=== PATIENT | male | born 1945 | race Caucasian/White ===

== ENCOUNTER 2017-08-26 22:27 | Inpatient (IN) | payer OTHER ==
[~2017-08-26] VITALS: Ht 190.5 cm; Wt 127.0 kg
[2017-08-26 23:44] LABS: HEMATOCRIT 47.2 % (38.0-50.0); HEMOGLOBIN 16.2 G/DL (12.5-16.6); MCH 28.6 PG (29.0-34.0); MCHC 34.3 G/DL (30.0-36.0); MCV 83.2 FL (86-99); PLATELET COUNT 173 K/uL (156-360); RBC DIS.WIDTH-CV 12.8 % (11.8-14.6); RBC DIS.WIDTH-SD 38.4 % (39-53); RED BLOOD COUNT 5.67 M/uL (4.00-5.50); WHITE BLOOD COUNT 6.6 K/uL (4.1-10.2)
[2017-08-26 23:53] LABS: ALBUMIN 3.8 g/dL (3.2-4.8)
[2017-08-26 23:56] LABS: GLUCOSE 198 mg/dL (70-99); TOTAL PROTEIN 6.4 g/dL (6.4-8.3)
[2017-08-26 23:57] LABS: TOTAL BILIRUBIN 1.5 mg/dL (0.0-1.0)
[2017-08-26 23:59] LABS: ALKALINE PHOSPHATASE 127 IU/L (3-129); GFR ESTIMATE (CALCULATED) > 59 mL/min/ (58.99-99999); INTER. NORMALIZED RATIO 1.1
[2017-08-27] VITALS (28 sets, daily range): BP systolic 92–196; BP diastolic 58–122
[2017-08-27] LABS: UREA NITROGEN (BUN) 12 mg/dL (9-23)
[2017-08-27 00:01] LABS: AST (GOT) 20 IU/L (2-34); PTT 29.8 SEC (25-37)
[2017-08-27 00:02] LABS: ALT (GPT) 24 IU/L (3-49)
[2017-08-27 00:03] LABS: LIPASE 14 U/L (1.0-51.0)
[2017-08-27 00:09] LABS: TROP-I INTERPRETATION NEGATIVE; TROPONIN-I 0.05 ng/mL (0.0-0.30)
[2017-08-27 00:22] LABS: CHLORIDE 107 mEq/L (99-109); POTASSIUM 3.9 mEq/L (3.7-5.4); SODIUM 139 mEq/L (136-147)
[2017-08-27] MEDS ORDERED: BUTALB-ASPIRIN1 EACH PO (01:46)
[2017-08-27] MEDS ORDERED: LOPRESSOR50 MG PO (01:47)
[2017-08-27] MEDS ORDERED: GLUCOTROL10 MG PO (01:47)
[2017-08-27] MEDS ORDERED: LIPITOR80 MG PO (01:47)
[2017-08-27] MEDS ORDERED: PROTONIX40 MG PO (01:48)
[2017-08-27] MEDS ORDERED: PRINIVIL20 MG PO (01:48)
[2017-08-27] MEDS ORDERED: ZYRTEC10 M2 PO (01:49)
[2017-08-27] MEDS ORDERED: NAPROSYN500 MG PO (01:50)
[2017-08-27] MEDS ORDERED: CYANOCOBALAM1000 MCG PO (01:50)
[2017-08-27] MEDS ORDERED: ONGLYZA5 MG PO (01:50)
[2017-08-27] MEDS ORDERED: LOW DOSE ASPIRI81 M1 PO (01:51)
[2017-08-27] MEDS ORDERED: LASIX20 MG PO (01:52)
[2017-08-27] MEDS ORDERED: ADVIL,NUPRIN,M200 MG PO (01:52)
[2017-08-27] MEDS ORDERED: PROSCAR5 MG PO (01:52)
[2017-08-27] MEDS ORDERED: HYTRIN2 MG PO (01:53)
[2017-08-27] MEDS ORDERED: TOPAMAX100 MG PO (01:54)
[2017-08-27] MEDS ORDERED: ERGOCALCIF50000 UNIT PO (01:55)
[2017-08-27] MEDS ORDERED: CLOTRIMAZOLE AF15 G2 TP (01:56)
[2017-08-27 13:01] LABS: BASOPHIL (%) 0.3 % (0-1); EOSINOPHIL (%) 0.9 % (0-5); EOSINOPHIL COUNT 0.1 K/uL (0-0.3); HEMATOCRIT 47.7 % (38.0-50.0); HEMOGLOBIN 15.9 G/DL (12.5-16.6); IMMATURE GRANULOCYTE (%) 0.5 % (0.0-0.7); LYMPHOCYTE (%) 17.3 % (15-42); LYMPHOCYTE COUNT 1.6 K/uL (1.0-2.8); MCH 27.9 PG (29.0-34.0); MCHC 33.3 G/DL (30.0-36.0); MCV 83.7 FL (86-99); MONOCYTE (%) 9.8 % (3-12); MONOCYTE COUNT 0.9 K/uL (0-0.8); NEUTROPHIL (%) 71.2 % (45-76); NEUTROPHIL COUNT 6.7 K/uL (1.8-6.4); PLATELET COUNT 190 K/uL (156-360); RBC DIS.WIDTH-SD 39.5 % (39-53); WHITE BLOOD COUNT 9.4 K/uL (4.1-10.2)
[2017-08-27 13:10] LABS: INTER. NORMALIZED RATIO 1.2
[2017-08-27 13:13] LABS: PTT 30.7 SEC (25-37)
[2017-08-27 14:01] LABS: CHLORIDE 107 MEQ/L (99-109); GFR ESTIMATE (CALCULATED) > 59 mL/min/ (58.99-99999); GLUCOSE 180 mg/dL (70-99); SODIUM 139 MEQ/L (136-147); UREA NITROGEN (BUN) 10 mg/dL (9-23)
[2017-08-28 00:20] VITALS: BP 150/67
[2017-08-28 03:53] VITALS: BP 120/66
[2017-08-28 06:10] LABS: BASOPHIL (%) 0.5 % (0-1); BASOPHIL COUNT 0.1 K/uL (0-0.1); EOSINOPHIL (%) 1.3 % (0-5); EOSINOPHIL COUNT 0.1 K/uL (0-0.3); HEMATOCRIT 47.9 % (38.0-50.0); IMMATURE GRANULOCYTE (%) 0.4 % (0.0-0.7); LYMPHOCYTE (%) 26.6 % (15-42); LYMPHOCYTE COUNT 2.5 K/uL (1.0-2.8); MCH 28.4 PG (29.0-34.0); MCHC 33.4 G/DL (30.0-36.0); MCV 85.1 FL (86-99); MONOCYTE (%) 10.1 % (3-12); MONOCYTE COUNT 0.9 K/uL (0-0.8); NEUTROPHIL (%) 61.1 % (45-76); NEUTROPHIL COUNT 5.7 K/uL (1.8-6.4); PLATELET COUNT 192 K/uL (156-360); RBC DIS.WIDTH-CV 13.3 % (11.8-14.6); RBC DIS.WIDTH-SD 41.1 % (39-53); RED BLOOD COUNT 5.63 M/uL (4.00-5.50); WHITE BLOOD COUNT 9.3 K/uL (4.1-10.2)
[2017-08-28 06:35] LABS: ALBUMIN 3.8 G/DL (3.2-4.8); ALKALINE PHOSPHATASE 108 IU/L (3-129); ALT (GPT) 17 IU/L (3-49); AST (GOT) 12 IU/L (2-34); CHLORIDE 105 MEQ/L (99-109); CREATININE 1.1 MG/DL (0.6-1.3); DIRECT BILIRUBIN 0.2 mg/dL (0.0-0.3); GFR ESTIMATE (CALCULATED) > 59 mL/min/ (58.99-99999); GLUCOSE 183 mg/dL (70-99); POTASSIUM 3.9 MEQ/L (3.7-5.4); SODIUM 137 MEQ/L (136-147); TOTAL BILIRUBIN 1.5 MG/DL (0.0-1.0); TOTAL PROTEIN 6.2 G/DL (6.4-8.3); UREA NITROGEN (BUN) 18 mg/dL (9-23)
[2017-08-28 08:37] VITALS: BP 140/70
[2017-08-28 12:37] VITALS: BP 110/65
[2017-08-28 16:30] VITALS: BP 146/70
[2017-08-29 10:19] LABS: HEMOGLOBIN A1c (GLYCOHEMOGLOB) 8.5 % (Below 5.7)
== END 2017-08-28 18:47 | disposition home or self-care (01) | DRG 83 ==
LOC: EME → EDBD 22:27 → EME 22:27 → TRA 22:27 → EDOF 08-27 01:57 → 4WEST 08-27 01:57 → ENRESERV 08-27 01:59 → 4WEST 08-27 02:46 → ENRESERV 08-27 14:55 → 3EAST 08-27 17:02
PROVIDERS: Emergency Medicine; Hospitalist; Internal Medicine Pulmonary Disease; Specialist
DX: S06.6X9A Traumatic subarachnoid hemorrhage with loss of consciousness of unspecified duration, initial encounter (principal); S12.100A Unspecified displaced fracture of second cervical vertebra, initial encounter for closed fracture; S00.01XA Abrasion of scalp, initial encounter; W19.XXXA Unspecified fall, initial encounter; R55 Syncope and collapse; I11.9 Hypertensive heart disease without heart failure; I25.10 Atherosclerotic heart disease of native coronary artery without angina pectoris; E78.5 Hyperlipidemia, unspecified; E11.9 Type 2 diabetes mellitus without complications; K21.9 Gastro-esophageal reflux disease without esophagitis; R60.0 Localized edema; N40.0 Benign prostatic hyperplasia without lower urinary tract symptoms; E66.9 Obesity, unspecified; Z68.34 Body mass index [BMI] 34.0-34.9, adult; Z95.0 Presence of cardiac pacemaker; Z95.5 Presence of coronary angioplasty implant and graft; Z79.84 Long term (current) use of oral hypoglycemic drugs; Z79.82 Long term (current) use of aspirin
CPT/HCPCS: 70450; 71045; 72125; 80048; 80053; 80076; 82948; 83036; 83690; 84484; 85025; 85027; 85610; 85730; 87641; 93005; 99281; 99285; J7030